=== PATIENT | female | born 1985 | race African-American/Black ===

== ENCOUNTER → 2019-12-01 | Outpatient (CLI) | payer OTHER ==
[2019-12-01 14:05] LABS: BASO % 0.4 % (0.0-1.0); EOS % 0.7 % (0.0-3.0); HEMATOCRIT 40.3 % (36.0-47.0); HEMOGLOBIN 12.3 g/dl (12.0-15.5); LYMPH % 45.4 % (24.0-44.0); MEAN CORPUSCULAR HEMOGLOBIN 25.8 pg (27.0-33.0); MEAN CORPUSCULAR HGB CONC 30.5 g/dl (32.0-36.5); MEAN CORPUSCULAR VOLUME 84.7 fl (80.0-96.0); MONO # 0.4 10^3/uL (0.0-0.8); MONO % 8.1 % (0.0-5.0); NEUTROPHILS % 45.4 % (36.0-66.0); PLATELET COUNT, AUTOMATED 175 10^3/uL (150-450); RED BLOOD COUNT 4.76 10^6/uL (4.00-5.40); WHITE BLOOD COUNT 4.5 10^3/uL (4.0-10.0)
[2019-12-01 14:41] LABS: ALBUMIN 3.7 GM/DL (3.2-5.2); ALT/SGPT 49 U/L (12-78); BILIRUBIN,TOTAL 0.2 MG/DL (0.2-1.0); BLOOD UREA NITROGEN 7 MG/DL (7-18); CALCIUM LEVEL 8.7 MG/DL (8.5-10.1); CARBON DIOXIDE LEVEL 26 MEQ/L (21-32); CHLORIDE LEVEL 106 MEQ/L (98-107); CHOLESTEROL LEVEL 171 MG/DL (<200); CREATININE FOR GFR 0.84 MG/DL (0.55-1.30); FREE T4 0.99 NG/DL (0.76-1.46); GLOMERULAR FILTRATION RATE > 60.0 (>60); GLUCOSE, FASTING 94 MG/DL (70-100); HDL CHOLESTEROL 75 MG/DL (>40); HEPATITIS B SURFACE ANTIBODY POSITIVE (POSITIVE); LDL CHOLESTEROL 77 MG/DL (<100); NON-HDL-C 96 MG/DL; POTASSIUM SERUM 4.3 MEQ/L (3.5-5.1); SODIUM LEVEL 139 MEQ/L (136-145); TOTAL 25(OH) VITAMIN D 22.9 NG/ML (30.0-100.0); TOTAL PROTEIN 8.1 GM/DL (6.4-8.2); TRIGLYCERIDES LEVEL 97 MG/DL (<150)
[2019-12-01 14:44] LABS: RUBELLA IgG QUALITATIVE IMMUNE (IMMUNE)
[2019-12-01 14:45] LABS: HEPATITIS B SURFACE ANTIGEN NEGATIVE (NEGATIVE)
[2019-12-01 15:13] LABS: HEPATITIS B CORE ANTIBODY IGM NEGATIVE (NEGATIVE)
[2019-12-03 00:07] LABS: HERPES ZOSTER, VARICELLA IgM <0.91 index (0.00-0.90); MUMPS VIRUS IgG ANTIBODY 19.8 AU/mL (Immune >10.9)
== END ==
LOC: M LAB 11:56
PROVIDERS: ATTEND Physician Assistant
DX: Z01.84 Encounter for antibody response examination (principal); Z13.29 Encounter for screening for other suspected endocrine disorder; Z13.220 Encounter for screening for lipoid disorders

== ENCOUNTER → 2019-12-13 | Outpatient (CLI) | payer OTHER ==
[2019-12-17 00:06] LABS: HEPATITIS A IgG TOTAL Negative (Negative); HERPES ZOSTER, VARICELLA IgG >4000 index (Immune >165); HERPES ZOSTER, VARICELLA IgM <0.91 index (0.00-0.90)
== END ==
LOC: M LAB 10:40
PROVIDERS: ATTEND Physician Assistant
DX: Z01.84 Encounter for antibody response examination (principal)

== ENCOUNTER → 2020-01-02 | Outpatient (REF) | payer OTHER ==
[2020-01-02 18:46] LABS: CHLAMYDIA DNA AMPLIFICATION NEGATIVE (NEGATIVE); GC DNA AMPLIFICATION NEGATIVE (NEGATIVE)
[2020-01-05 10:38] LABS: HEPATITIS B SURFACE ANTIGEN NEGATIVE (NEGATIVE); HEPATITIS C VIRUS ABY INDEX 0.1 INDEX (<0.8); HIV 1&2 SCREEN CENTAUR NEGATIVE (NEGATIVE)
== END ==
LOC: M PLALAB 15:38
PROVIDERS: ATTEND Advanced Practice Midwife
DX: O09.511 Supervision of elderly primigravida, first trimester (principal); Z3A.00 Weeks of gestation of pregnancy not specified

== ENCOUNTER → 2020-01-15 | Outpatient (CLI) | payer OTHER | LOC: M PLALAB 13:19 | PROVIDERS: ATTEND Advanced Practice Midwife | DX: O09.511 Supervision of elderly primigravida, first trimester (principal); Z3A.00 Weeks of gestation of pregnancy not specified ==

== ENCOUNTER → 2020-01-30 | Outpatient (REF) | payer OTHER | LOC: M PLALAB 10:25 | PROVIDERS: ATTEND Advanced Practice Midwife | DX: O09.511 Supervision of elderly primigravida, first trimester (principal) ==

== ENCOUNTER → 2020-03-18 | Outpatient (CLI) | payer OTHER ==
[~2020-03-18] MED LIST: GNP28TAB2 PO; NUVAMIS2 PV
--- NOTE | 2020-03-25 14:38 | REP ---
OB ULTRASOUND: Real-time sonographic evaluation of the gravid uterus is performed. This report is delayed as apparently, the initial dictation was lost and the study is submitted for re-dictation 03/25/2020. There is a single living intrauterine gestation. The estimated gestational age is 19 weeks 0 days, EDC 08/12/2020. Biometry and Growth: BPD 44 mm = 19 weeks 2 days HC 163 mm = 19 weeks 1 day AC 136 mm = 19 weeks 0 days FL 27 mm = 18 weeks 0 days HC/AC ratio 1.20 within normal range of 1.06 to 1.25. Estimated weight 251 grams, 32nd percentile. SEEN/GROSSLY UNREMARKABLE Lateral ventricles Yes Posterior fossa Yes Upper lip Yes Four-chamber heart Yes LVOT Yes RVOT Yes Stomach Yes Cord insertion Yes Three vessel cord Yes Kidneys Yes Bladder Yes Spine Yes Cervical length: Closed and measures 4 cm in length heart rate: 147 beats per minute. position: Transverse with head towards the maternal right side. Placenta: Anterior and grade 1 with no previa or abruption. Amniotic fluid: Within normal limits. There appears to be a left uterine fibroid 1.8 x 1.7 x 1.2 cm.
== END ==
LOC: M WHC 08:57
PROVIDERS: ATTEND Nurse Practitioner Women's Health
DX: O09.512 Supervision of elderly primigravida, second trimester (principal); Z3A.19 19 weeks gestation of pregnancy

== ENCOUNTER → 2020-03-25 | Outpatient (REF) | payer OTHER | LOC: M PLALAB 12:32 | PROVIDERS: ATTEND Advanced Practice Midwife | DX: O09.511 Supervision of elderly primigravida, first trimester (principal) ==

== ENCOUNTER → 2020-05-12 | Outpatient (REF) | payer OTHER ==
[2020-06-14 11:00] LABS: HEMATOCRIT 39.1 % (36.0-47.0); HEMOGLOBIN 12.1 g/dl (12.0-15.5); MEAN CORPUSCULAR HEMOGLOBIN 27.1 pg (27.0-33.0); MEAN CORPUSCULAR HGB CONC 30.9 g/dl (32.0-36.5); MEAN CORPUSCULAR VOLUME 87.7 fl (80.0-96.0); PLATELET COUNT, AUTOMATED 158 10^3/uL (150-450); RED BLOOD COUNT 4.46 10^6/uL (4.00-5.40); WHITE BLOOD COUNT 6.3 10^3/uL (4.0-10.0)
== END ==
LOC: M SFHCWAGY 13:08
PROVIDERS: ATTEND Specialist
DX: Z36.9 Encounter for antenatal screening, unspecified (principal)

== ENCOUNTER 2020-05-16 15:29 | Inpatient (IN) | payer OTHER ==
[2020-05-16] MEDS ORDERED: ceFAZolin 2 GM/D5W 50 ML IV BAG (J0690 PER 500MG) ONE (16:37)
[2020-05-16] MEDS ORDERED: BICITRA 30ML SOLN UDC ONE (16:37)
[2020-05-16] MEDS ORDERED: ceFAZolin 2 GM/D5W 50 ML IV BAG (J0690 PER 500MG) As Ordered ONE (16:37)
[2020-05-16] MEDS ORDERED: BICITRA 30ML SOLN UDC As Ordered ONE (16:38)
[2020-05-16] MEDS ORDERED: dexameTHASONE 4 MG/ML 1ML VIAL (J1100 PER 1MG) ONE (16:53)
[2020-05-16] MEDS ORDERED: MORPHINE PRES-FREE INJ 10 MG/10 ML VIAL (J2274) ONE (16:53)
[2020-05-16] MEDS ORDERED: fentaNYL 100 MCG/2 ML INJECTION (J3010) ONE (16:53)
[2020-05-16] MEDS ORDERED: ONDANSETRON 4MG/2ML VIAL ONE (16:53)
[2020-05-16] MEDS ORDERED: MIDAZOLAM INJ 2MG/2ML VIAL (J2250 PER 1MG) ONE (17:23)
[2020-05-16] MEDS ORDERED: PHENYLephrine HCL 500 MCG/5 ML (100MCG/ML) SYRINGE (J2370) ONE (17:45)
[2020-05-16] MEDS ORDERED: diphenhydrAMINE 50MG/ML VIAL (J1200) ONE (19:06)
[2020-05-16] MEDS ORDERED: OXYTOCIN 30 UNITS IN 0.9% NaCl 500ML IV BAG (J2590) ONE (19:43)
[2020-05-16] MEDS ORDERED: OXYTOCIN 30 UNITS IN 0.9% NaCl 500ML IV BAG (J2590) As Ordered ONE (19:43)
[2020-05-16] MEDS ORDERED: UNASYN 3 GM VIAL ONE (19:47)
[2020-05-17] MEDS ORDERED: UNASYN 3 GM VIAL As Ordered ONE (05:49)
[2020-05-17] MEDS ORDERED: UNASYN 3 GM VIAL ONE (05:49)
[2020-05-17] MEDS ORDERED: PERCOCET 5MG/325MG TAB ONE ×3 (12:55→23:24)
[2020-05-18] MEDS ORDERED: PERCOCET 5MG/325MG TAB ONE ×2 (06:51→13:16)
[2020-05-18] MEDS ORDERED: DOCUSATE SODIUM 100 MG CAP ONE (08:22)
[2020-05-18] MEDS ORDERED: KETOROLAC 30 MG/ML 1ML VIAL As Ordered ONE (10:10)
[2020-05-18] MEDS ORDERED: KETOROLAC 30 MG/ML 1ML VIAL ONE (10:10)
[2020-05-18] MEDS ORDERED: MOM 30ML SUSPENSION UDC ONE (10:13)
[2020-05-18] MEDS ORDERED: PERCOCET 5MG/325MG TAB As Ordered ONE (13:16)
[2020-06-15 10:39] LABS: HEMOGLOBIN 8.6 g/dl (12.0-15.5); RED BLOOD COUNT 2.97 10^6/uL (4.00-5.40)
[2020-06-15 10:40] LABS: HEMATOCRIT 26.2 % (36.0-47.0); MEAN CORPUSCULAR HGB CONC 32.8 g/dl (32.0-36.5); MEAN CORPUSCULAR VOLUME 88.2 fl (80.0-96.0); PLATELET COUNT, AUTOMATED 72 10^3/uL (150-450)
[2020-06-20 21:14] LABS: INR 0.94; PARTIAL THROMBOPLASTIN TIME 29.8 SECONDS (24.2-38.5); PROTHROMBIN TIME 12.8 SECONDS (12.5-14.3)
[2020-06-20 21:16] LABS: HEMATOCRIT 22.3 % (36.0-47.0); HEMOGLOBIN 7.6 g/dl (12.0-15.5); MEAN CORPUSCULAR HEMOGLOBIN 29.5 pg (27.0-33.0); MEAN CORPUSCULAR HGB CONC 34.1 g/dl (32.0-36.5); MEAN CORPUSCULAR VOLUME 86.4 fl (80.0-96.0); PLATELET COUNT, AUTOMATED 56 10^3/uL (150-450); RED BLOOD COUNT 2.58 10^6/uL (4.00-5.40); WHITE BLOOD COUNT 13.4 10^3/uL (4.0-10.0)
--- NOTE | 2020-07-05 15:13 | HPE ---
DATE OF ADMISSION: 05/16/2020 REASON FOR ADMISSION: Intrauterine demise with suspected placental abruption. HISTORY OF PRESENT ILLNESS: Mrs. Ventura is a 34-year-old 1 who presented at ____weeks with acute onset of severe abdominal pain and vaginal bleed. She reports earlier in the afternoon shopping with her and started to experience severe abdominal pain, nausea, and vomiting. She went to the restroom at which time; she noted that she was having vaginal bleeding. She immediately called and presented to labor and delivery for evaluation. Upon our evaluation, doptones were not assessable. Transabdominal ultrasound confirmed intrauterine demise with a large 12 x 12 cm area of clot consistent with placental abruption. Her predated course had otherwise been unremarkable. PAST MEDICAL HISTORY: None. PAST SURGICAL HISTORY: None. MEDICATIONS: vitamins. ALLERGIES: No known drug allergies. OBSTETRICAL HISTORY: She is a 1. SOCIAL HISTORY: Denies any alcohol, tobacco, or drug use during . ASSESSMENT: * This patient is a 34-year-old 1 at ___ weeks with intrauterine demise. * Placental abruption. PLAN: * Admit to labor and delivery. CBC, RPR, type and screen, fibrinogen, tox screen, preeclampsia panel have been ordered. * Patient has been thoroughly counseled in regards to her diagnosis. I discussed the concern for large to complete abruption with severe hemorrhage and disseminated intravascular coagulation (DIC). RECOMMENDATIONS: Proceed with rapid section. Plan to transfuse blood products. AUBREY
[2020-07-25 13:03] LABS: HEMATOCRIT 30.9 % (36.0-47.0); HEMOGLOBIN 9.6 g/dl (12.0-15.5); MEAN CORPUSCULAR HEMOGLOBIN 26.8 pg (27.0-33.0); MEAN CORPUSCULAR HGB CONC 31.1 g/dl (32.0-36.5); MEAN CORPUSCULAR VOLUME 86.3 fl (80.0-96.0); PLATELET COUNT, AUTOMATED 110 10^3/uL (150-450); RED BLOOD COUNT 3.58 10^6/uL (4.00-5.40); WHITE BLOOD COUNT 13.7 10^3/uL (4.0-10.0)
[2020-07-25 13:07] LABS: INR 1.44; PARTIAL THROMBOPLASTIN TIME 44.5 SECONDS (24.2-38.5); PROTHROMBIN TIME 17.9 SECONDS (12.5-14.3)
[2020-07-25 13:40] LABS: HEMOGLOBIN 13.6 g/dl (12.0-15.5); RED BLOOD COUNT 4.71 10^6/uL (4.00-5.40); WHITE BLOOD COUNT 15.2 10^3/uL (4.0-10.0)
[2020-07-25 13:41] LABS: MEAN CORPUSCULAR HEMOGLOBIN 28.9 pg (27.0-33.0); MEAN CORPUSCULAR HGB CONC 32.4 g/dl (32.0-36.5); MEAN CORPUSCULAR VOLUME 89.2 fl (80.0-96.0); PLATELET COUNT, AUTOMATED 54 10^3/uL (150-450)
[2020-08-01 09:40] LABS: ALT/SGPT 23 U/L (12-78); BILIRUBIN,TOTAL 0.3 MG/DL (0.2-1.0); CK-MB VALUE MASS 1.2 NG/ML (<3.6); CPK CREATINE PHOSPHOKINASE 125 U/L (26-192); CREATININE FOR GFR 0.94 MG/DL (0.55-1.30); GLOMERULAR FILTRATION RATE > 60.0 (>60); LDH LACTATE DEHYDROGENASE 257 U/L (84-246); MB/CK RELATIVE INDEX 0.96 (< OR =4); URIC ACID 3.7 MG/DL (2.6-6.0)
== END 2020-05-18 13:30 | disposition home or self-care (01) | DRG 773 ==
LOC: M LDI 15:29
PROVIDERS: ADMIT Obstetrics & Gynecology; ATTEND Obstetrics & Gynecology
PROC: 10D00Z1 Extraction of Products of Conception, Low, Open Approach (ICD-10-PCS; principal; 2020-05-16)
PROC: 30233N1 Transfusion of Nonautologous Red Blood Cells into Peripheral Vein, Percutaneous Approach (ICD-10-PCS; 2020-05-16)
PROC: 30233K1 Transfusion of Nonautologous Frozen Plasma into Peripheral Vein, Percutaneous Approach (ICD-10-PCS; 2020-05-16)
DX: O45.8X3 Other premature separation of placenta, third trimester (principal); Z37.1 Single stillbirth; Z3A.35 35 weeks gestation of pregnancy; O09.523 Supervision of elderly multigravida, third trimester

== ENCOUNTER 2020-07-25 22:20 | Emergency (ER) | payer OTHER ==
[~2020-07-25] VITALS: Ht 160 cm; Wt 68.2 kg
[2020-07-25] MEDS ORDERED: NUVAMIS2 PV (22:27)
[2020-07-25] MEDS ORDERED: GNP28TAB2 PO (22:27)
[2020-07-25] MEDS ORDERED: cloNIDine 0.1 MG TAB PO ONE (23:15)
[2020-07-25] MEDS ORDERED: NAPROXEN 250 MG TAB PO ONE (23:15)
[2020-07-25 23:25] LABS: BASO % 0.6 % (0.0-1.0); EOS # 0.1 10^3/uL (0.0-0.5); EOS % 1.2 % (0.0-3.0); HEMATOCRIT 42.2 % (36.0-47.0); HEMOGLOBIN 12.5 g/dl (12.0-15.5); LYMPH # 2.7 10^3/uL (1.5-5.0); LYMPH % 54.4 % (24.0-44.0); MEAN CORPUSCULAR HEMOGLOBIN 25.1 pg (27.0-33.0); MEAN CORPUSCULAR HGB CONC 29.6 g/dl (32.0-36.5); MEAN CORPUSCULAR VOLUME 84.6 fl (80.0-96.0); MONO # 0.4 10^3/uL (0.0-0.8); NEUTROPHILS # 1.9 10^3/uL (1.5-8.5); NEUTROPHILS % 36.8 % (36.0-66.0); PLATELET COUNT, AUTOMATED 226 10^3/uL (150-450); RED BLOOD COUNT 4.99 10^6/uL (4.00-5.40)
[2020-07-25 23:33] VITALS: BP 148/100
[2020-07-26] LABS: ALBUMIN 3.6 GM/DL (3.2-5.2); ALT/SGPT 44 U/L (12-78); BILIRUBIN,DIRECT < 0.1 MG/DL (0.0-0.2); BILIRUBIN,TOTAL 0.2 MG/DL (0.2-1.0); MAGNESIUM LEVEL 2.1 MG/DL (1.8-2.4); TOTAL PROTEIN 8.3 GM/DL (6.4-8.2)
[2020-07-26 00:21] VITALS: BP 130/96
== END 2020-07-26 00:39 | disposition home or self-care (01) ==
LOC: M ED 22:20
DX: R03.0 Elevated blood-pressure reading, without diagnosis of hypertension (principal); R20.2 Paresthesia of skin; Z79.3 Long term (current) use of hormonal contraceptives